=== PATIENT | female | born 1960 | race Caucasian/White ===

== ENCOUNTER 2017-12-31 12:09 | Day surgery (SDC) | payer OTHER ==
[~2017-12-31] VITALS: Ht 162.6 cm; Wt 74.8 kg
[~2017-12-31 12:09] MED LIST: FISH OIL500 MG PO; FLEXERIL10 MG PO; HCTZ; HYDROCHLOROTHIA25 MG PO; LIPITOR40 MG PO; LISINOPRIL20 MG PO; MACROBID 100 M100 MG PO; MECLIZINE HCL25 MG PO; METFORMIN HCL1000 M1 PO; METFORMIN HCL1000 MG PO; MULTIVITAMINS1 EAC7 PO; PANTOPRAZOLE SO40 MG PO; PRILOSEC20 MG PO; TRANSDERM-SCOP1 EA TD; ZOFRAN ODT8 MG PO
[2017-12-31] MEDS ORDERED: ASPIRIN EC81 MG PO (12:39)
[2017-12-31] MEDS ORDERED: TYLENOL WITH C1 EACH PO (12:39)
--- NOTE | 2017-12-31 15:29 | NUR ---
12/31/17 1529 Ronna Boyd 1525 PT ARRIVED IN PACU SLEEPY WITH NO C/O'S. ABD SOFT.
--- NOTE | 2018-01-01 12:00 | OR ---
[facility] [address], [place] [address] Signed DATE OF OPERATION: 12/31/2017 SURGEON: Bernardino Rios MD PREOPERATIVE DIAGNOSES: 1. Gastroesophageal reflux symptoms. 2. Diarrhea alternated with constipation. 3. History of partial colectomy for diverticular disease. 4. Family history of colon cancer (father). POSTOPERATIVE DIAGNOSES: 1. Hiatal hernia without obvious esophagitis. 2. Extensive diverticulosis left colon anastomosis widely patent. PROCEDURE: 1. Esophagogastroduodenoscopy with biopsy. 2. Total colonoscopy to cecum. ANESTHESIA: Intravenous sedation fentanyl 150 mcg, Versed 9 mg. INDICATION: This 57-year-old white woman is a patient of Dr. Doty, and is well known to me recently. She has had issues of reflux, including substernal burning pain, reactive airways, and on occasions dysphagia. Additionally, she has colonic symptoms, including diarrhea problems alternating with constipation. She self describes issues with rectocele. She has family history of colon cancer in her father. She has undergone partial colectomy for diverticular disease. This was in 2000. She is admitted to undergo upper endoscopy and colonoscopy at this time. She understands the risks of bleeding, infection, perforation. Findings on upper endoscopy, she had a small hiatal hernia, but no sign of esophagitis. No Veronica's epithelium or stricture. The stomach was normal as was the duodenum. There was no evidence of H pylori, and ELIGIO testing. Colonoscopy showed an excellent bowel prep. Complete colonoscopy was undertaken to the terminal ileum and into the cecum as well. There were numerous diverticula of the left and transverse colon. The coloproctostomy was widely patent. There was no sign of proctitis, no sign of polyps, no sign of inflammation including the ileum. PROCEDURE IN DETAIL: The patient was brought to the endoscopy suite given topical Hurricaine spray Electronically Signed By: BERNARDINO RIOS MD 01/01/18 [facility] PATIENT NAME: PADILLA LINK OPERATIVE REPORT DATE OF : 56 REPORT #: [id number] PHYSICIAN: BERNARDINO RIOS MD PCP: KHURRAM DOTY REPORT IS CONFIDENTIAL AND NOT TO BE RELEASED WITHOUT AUTHORIZATION [facility] [address], [place] [address] Signed hypopharyngeal anesthesia and placed in lateral decubitus position. A bite block was placed. An Olympus video upper endoscope was passed in the hypopharynx. The vocal cords were normal. The scope was advanced through the esophagus. Throughout its length it was normal. Scope was advanced to the stomach, which was insufflated with air. Rugal folds were normal, as was the antrum and pylorus. The scope was passed into the duodenum, which appeared normal. Biopsies were taken of the 3rd and 2nd portions. The ampulla was normal. The scope was withdrawn to the stomach where biopsies taken of the antrum, which appeared normal, and retroflex view undertaken showing a hiatal hernia. No sign of neoplasm, or varices. The scope was withdrawn to the distal esophagus where the mucosa appeared normal overall. There was no Veronica's epithelium stricture, neoplasm, or even inflammation grossly. Biopsies were taken there, as well as in the mid esophagus. The scope was removed. Plans were then made for colonoscopy. The table was rotated and additional sedation given. Digital rectal examination performed which was normal. An Olympus video colonoscope was passed in the rectum and manipulated throughout the colon. Numerous diverticula were seen in the sigmoid, and left colon, and even some of the transverse. The scope was ultimately advanced to the cecum, which appeared normal as did the ileum. With minimal manipulation the ileum was intubated. The ileal mucosa was normal, but biopsies were taken to assess for occult ileitis. The scope was withdrawn to the cecum, which was normal. Further withdrawal of scope showed no other abnormality throughout the colon other than diverticulosis. The rectum appeared normal on retroflexed view. The scope was removed, and the patient was taken to recovery room in good condition. CONCLUDING DIAGNOSES: 1. Hiatal hernia. No sign of esophagitis, stricture, or Veronica. 2. Extensive diverticulosis of sigmoid and left colon starting benita sigmoid and left colon. No sign of neoplasm or polyp. PLAN: He will see her back in the office in a few weeks and review her pathology reports. She may benefit from a fiber supplement. We will initiate Citrucel 1 scoop p.o. daily. Bernardino Rios MD JM/MODL /[id number] Electronically Signed By: BERNARDINO RIOS MD 01/01/18 [facility] PATIENT NAME: PADILLA LINK OPERATIVE REPORT DATE OF : 56 REPORT #: [id number] PHYSICIAN: BERNARDINO RIOS MD PCP: KHURRAM DOTY REPORT IS CONFIDENTIAL AND NOT TO BE RELEASED WITHOUT AUTHORIZATION [place] [phone] Signed cc: MEAGHAN Felton Copies: KHURRAM DOTY ~ Electronically Signed By: BERNARDINO RIOS MD 01/01/18 1200 PATIENT NAME: PRIYANKA LINKKen POOLE OPERATIVE REPORT DATE OF : 56 REPORT #: [id number] PHYSICIAN: BERNARDINO RIOS MD PCP: KHURRAM DOTY REPORT IS CONFIDENTIAL AND NOT TO BE RELEASED WITHOUT AUTHORIZATION
== END 2017-12-31 16:00 | disposition home or self-care (01) ==
LOC: DS 12:09 → OPS 12:09 → DS 13:00 → OPS 13:00
PROVIDERS: Surgery
PROC: 0DB78ZZ Excision of Stomach, Pylorus, Via Natural or Artificial Opening Endoscopic (ICD-10-PCS; 2017-12-31)
PROC: 0DB38ZX Excision of Lower Esophagus, Via Natural or Artificial Opening Endoscopic, Diagnostic (ICD-10-PCS; 2017-12-31)
PROC: 0DJD8ZZ Inspection of Lower Intestinal Tract, Via Natural or Artificial Opening Endoscopic (ICD-10-PCS; principal; 2017-12-31 13:00)
PROC: 0DB98ZX Excision of Duodenum, Via Natural or Artificial Opening Endoscopic, Diagnostic (ICD-10-PCS; 2017-12-31 13:00)
DX: K29.50 Unspecified chronic gastritis without bleeding (principal); K44.9 Diaphragmatic hernia without obstruction or gangrene; K57.30 Diverticulosis of large intestine without perforation or abscess without bleeding; E11.9 Type 2 diabetes mellitus without complications; I10 Essential (primary) hypertension; K21.9 Gastro-esophageal reflux disease without esophagitis; F41.9 Anxiety disorder, unspecified; F32.9 Major depressive disorder, single episode, unspecified; E78.5 Hyperlipidemia, unspecified; G47.30 Sleep apnea, unspecified; Z99.89 Dependence on other enabling machines and devices; Z80.0 Family history of malignant neoplasm of digestive organs; Z90.49 Acquired absence of other specified parts of digestive tract; Z98.890 Other specified postprocedural states; Z86.010 Personal history of colon polyps
CPT/HCPCS: 99153; G0500; J2250; J3010; J7120